=== PATIENT | female | born 1950 | race African-American/Black ===

== ENCOUNTER 2024-01-27 13:25 | Emergency (ER) | payer MEDICARE ==
[~2024-01-27] VITALS: Ht 157.5 cm; Wt 49.9 kg
[2024-01-27 13:50] VITALS: BP_SYST 141; PULSE 62; RESP 18; TEMP 97; O2SAT 97
[2024-01-27 14:12] LABS: BASOPHILS % (AUTO) 0.7 % (0.0-2.0); EOSINOPHILS # (AUTO) 0.1 K/uL (0.0-0.4); HEMATOCRIT 33.9 % (36-48); HEMOGLOBIN 11.6 g/dL (12.0-16.0); LYMPHOCYTES # (AUTO) 1.2 K/uL (1.0-5.5); LYMPHOCYTES % (AUTO) 21.1 % (20.5-51.5); MEAN CORPUSCULAR HEMOGLOBIN 34 pg (27-31); MEAN CORPUSCULAR HGB CONC 34 % (32-36); MEAN CORPUSCULAR VOLUME 99 fL (79.0-98.0); MONOCYTES # (AUTO) 0.8 K/uL (0.0-1.0); MONOCYTES % (AUTO) 14.7 % (1.7-9.3); NEUTROPHILS # (AUTO) 3.5 K/uL (1.8-7.7); NEUTROPHILS % (AUTO) 61.5 % (40.0-70.0); PLATELET COUNT (AUTO) 289 K/uL (130-430); RED BLOOD CELL COUNT(AUTO) 3.42 MIL/uL (4.2-6.2); RED CELL DISTRIBUTION WIDTH 17.2 % (9.0-15.0); WHITE BLOOD COUNT (AUTO) 5.7 K/uL (4.8-10.8)
[2024-01-27] MEDS: NACL 0.9% 1,000 ML IV ONE (14:27)
[2024-01-27 14:35] LABS: ALANINE AMINOTRANSFERASE 18 U/L (12-78); ALBUMIN 2.9 g/dL (3.4-4.8); ANION GAP 5 (5-15); ASPARTATE AMINOTRANSFERASE 25 U/L (10-37); CALCIUM 8.9 mg/dL (8.4-11.0); CARBON DIOXIDE 30 mmol/L (23-29); CHLORIDE 102 mmol/L (98-107); CREATININE 0.65 mg/dL (0.55-1.30); GLUCOSE 98 mg/dL (74-106); POTASSIUM 4.3 mmol/L (3.5-5.1); SODIUM SERUM 137 mmol/L (136-145); TOTAL BILIRUBIN 1.6 mg/dL (0.0-1.0); TOTAL PROTEIN, SERUM 6.2 g/dL (6.4-8.3); UREA NITROGEN, BLOOD 12 mg/dL (8-21)
[2024-01-27 14:37] LABS: BILIRUBIN,DIRECT 0.4 mg/dL (0.0-0.3)
[2024-01-27] MEDS ORDERED: LACT-225 PO (15:04)
[2024-01-27] MEDS: ACETAMINOPHEN 325 MG TABLET PO ONE (15:46)
[2024-01-27 15:50] VITALS: BP_SYST 140; PULSE 71; RESP 17; TEMP 97; O2SAT 98
== END 2024-01-27 15:51 | disposition home or self-care (01) ==
LOC: SED 13:25
DX: R55 Syncope and collapse (principal); R42 Dizziness and giddiness; E86.0 Dehydration; I10 Essential (primary) hypertension; Z85.3 Personal history of malignant neoplasm of breast; Z88.0 Allergy status to penicillin; Z98.890 Other specified postprocedural states
CPT/HCPCS: 99285; 96360; 71045; 80076; 80048; 83880; 85025; 84484; 36415; 93005; J7030